=== PATIENT | female | born 1965 | race Caucasian/White ===

== ENCOUNTER 2019-06-15 09:11 | Emergency (ER) | payer SELFPAY ==
[~2019-06-15] VITALS: Ht 162.6 cm; Wt 70.5 kg
[2019-06-15 09:13] VITALS: TEMP 98.2
[2019-06-15 10:12] LABS: BASO # 0.1 (0.0-0.2); BASO % 0.6 % (0.0-2.0); EOS # 0.2 (0.0-0.7); EOS % 2.1 % (0-4.0); GRAN # 5.2 (1.4-6.5); GRAN % 66.7 % (42.2-75.2); HEMOGLOBIN 15.1 g/dl (12.5-16.0); LYMPH # 1.9 (1.2-3.4); LYMPH % 23.8 % (20.0-51.0); MEAN CELL VOLUME 91 fl (80.0-100.0); MEAN CORPUSCULAR HEMOGLOBIN 31 pg (27.0-31.0); MEAN CORPUSCULAR HGB CONC 34 g/dl (33.0-37.0); MEAN PLATELET VOLUME 9.7 fl (7.4-10.4); MONO # 0.5 (0.1-0.6); MONO % 6.2 % (1.7-9.3); PLATELET COUNT 269 K/mm3 (130-400); RED BLOOD COUNT 4.84 M/mm3 (4.10-5.30); REDCELL DISTRIBUTION WIDTH-CV 12.7 % (11.5-14.5)
[2019-06-15 10:19] LABS: ALBUMIN 4.5 gm/dL (3.5-5.0); BILIRUBIN,TOTAL 0.4 mg/dL (0.0-1.0); CALCIUM 9.8 mg/dL (8.4-10.2); CREATININE, serum 0.65 (0.52-1.25); INR 0.9 (0.8-3.0); POTASSIUM 4.2 mmol/L (3.4-5.0)
[2019-06-15] MEDS ORDERED: ZOFRAN ODT4 MG PO (12:03)
[2019-06-15 13:28] VITALS: BP 137/82; PULSE 58
--- NOTE | 2019-06-15 14:19 | NUR ---
MARJORIE responded to ED consult, due to lack of funds and food. MARJORIE then met with the patient. The patient reports that she lives alone in [place]. She states that she moved to [place] two months ago from [place]. She states that she is waiting on public housing to open up and that she is on the top of the list for a place in [place]. She reports having no family and then no friend support in [place]. She states that she does have a car. The patient is self pay. The patient reports that she has applied for Medicaid and that she has been approved. She states that her Medicaid should be active in July. MARJORIE provided the patient with [facility]'s Resource Guide, [employer] [facility] [employer], and [email or web address] phone number. MARJORIE also offered to help the patient get set up with a PCP. The patient was interested in the [facility], but did not want to get set up with [facility]. The patient reports that she would like to talk to Financial Counseling about financial assistance for this ED visit. MARJORIE consulted Financial Counselor Ileana. Ileana Pal to meet with the patient. The patient reports that EMS brought her to the hospital and that she would need transportation back home and would not be able to afford a taxi. MARJORIE provided a taxi voucher. MARJORIE updated the patient's RN of the above information and gave him the taxi voucher. The patient had no other questions or concerns for MARJORIE. No additional needs at this time.
== END 2019-06-15 13:30 | disposition home or self-care (01) ==
LOC: COL.ER 09:11
PROVIDERS: Physician Assistant
DX: S06.9X9A Unspecified intracranial injury with loss of consciousness of unspecified duration, initial encounter (principal); S00.03XA Contusion of scalp, initial encounter; F07.81 Postconcussional syndrome; F17.210 Nicotine dependence, cigarettes, uncomplicated; R40.2412 Glasgow coma scale score 13-15, at arrival to emergency department; W19.XXXA Unspecified fall, initial encounter; W22.8XXA Striking against or struck by other objects, initial encounter; Y92.009 Unspecified place in unspecified non-institutional (private) residence as the place of occurrence of the external cause
CPT/HCPCS: J2270; J2405; J7030